=== PATIENT | male | born 1995 | race Caucasian/White ===

== ENCOUNTER 2024-05-18 09:41 | Emergency (ER) | payer SELFPAY ==
[~2024-05-18] VITALS: Ht 175.3 cm; Wt 70.3 kg
[2024-05-18 10:22] VITALS: BP 131/80; PULSE 71; RESP 20; TEMP 36.44736; O2SAT 98
[2024-05-18] MEDS ORDERED: MOXI3DRO2 OP (10:40)
[2024-05-18 10:44] VITALS: BP 131/80; PULSE 71; RESP 20; TEMP 97.6; O2SAT 98
[2024-05-18 10:46] VITALS: BP 113/67; PULSE 77; RESP 20; TEMP 97.6; O2SAT 98
== END 2024-05-18 10:47 | disposition home or self-care (01) ==
LOC: ER 09:41
DX: H10.33 Unspecified acute conjunctivitis, bilateral (principal)
CPT/HCPCS: 99283

== ENCOUNTER 2024-06-14 09:50 | Emergency (ER) | payer SELFPAY ==
[~2024-06-14] VITALS: Ht 175.3 cm; Wt 70.3 kg
[~2024-06-14 09:50] MED LIST: MOXI3DRO2 OP
[2024-06-14 09:57] VITALS: BP 137/87; PULSE 95; RESP 16; TEMP 98; O2SAT 98
[2024-06-14] MEDS ORDERED: DUONEB 0.5-3(2.5) MG/3 ML IH ONE (10:02)
[2024-06-14] MEDS ORDERED: PREDNISONE ONE (10:07)
[2024-06-14 10:09] VITALS: BP 137/87; PULSE 83; RESP 16; TEMP 98; O2SAT 98
[2024-06-14] MEDS: DUONEB 0.5-3(2.5) MG/3 ML IH STA (10:09)
[2024-06-14 10:11] VITALS: PULSE 83; PULSE 89; O2SAT 100; O2SAT 96
[2024-06-14] MEDS: PREDNISONE PO STA (10:12)
== END 2024-06-14 10:20 | disposition home or self-care (01) ==
LOC: ER 09:50
DX: J45.909 Unspecified asthma, uncomplicated (principal); F17.210 Nicotine dependence, cigarettes, uncomplicated
CPT/HCPCS: 99283; 94640; J7512